=== PATIENT | male | born 1980 | race Two or more races ===

== ENCOUNTER 2021-04-30 08:41 | Emergency (ER) | payer OTHER ==
[~2021-04-30] VITALS: Ht 193 cm; Wt 123.0 kg
[2021-04-30] MEDS ORDERED: ASPIRIN 81MG TABLET PO ONE (09:15)
[2021-04-30] MEDS ORDERED: FUROSEMIDE 40MG/4ML VIAL IV ONE (09:15)
[2021-04-30 09:39] LABS: BASOPHILS % 0.8 % (0.0-2.0); EOSINOPHILS % 0.5 % (0.0-5.0); HEMATOCRIT. 48.8 % (42.0-52.0); HEMOGLOBIN. 15.8 g/dL (14.0-18.0); LYMPHOCYTES % 10.1 % (20.0-50.0); MEAN CORPUSCULAR HEMOGLOBIN 28.5 pg (28.0-32.0); MEAN CORPUSCULAR VOLUME 87.9 fL (80.0-94.0); MEAN PLATELET VOLUME 9.6 fl (7.4-10.4); MONOCYTES % 8.4 % (2.0-8.0); NEUTROPHILS % 80.2 % (40.0-76.0); PLATELET 270 x1000/uL (130-400); RED BLOOD CELL COUNT 5.55 mill/uL (4.7-6.1); RED CELL DISTRIBUTION WIDTH 14.6 % (11.6-14.6)
[2021-04-30 09:44] LABS: CHLORIDE 100 mEq/L (98-107)
[2021-04-30 09:49] LABS: ETHANOL BLOOD < 10 mg/dL
[2021-04-30 10:59] LABS: *BARBITURATES SCREEN URINE NEGATIVE (NEGATIVE); *BENZODIAZEPINES SCREEN URINE NEGATIVE (NEGATIVE)
[2021-04-30 11:00] LABS: *AMPHETAMINES SCREEN URINE NEGATIVE (NEGATIVE); *COCAINE SCREEN URINE NEGATIVE (NEGATIVE); METHADONE URINE SCREEN NEGATIVE (NEGATIVE); OPIATES URINE SCREEN NEGATIVE (NEGATIVE); PHENCYCLIDINE URINE SCREEN NEGATIVE (NEGATIVE)
[2021-04-30 11:01] LABS: CANNABINOID URINE SCREEN NEGATIVE (NEGATIVE)
[2021-04-30 11:30] VITALS: BP 122/84
[2021-05-01] MEDS ORDERED: SPIR25TA6 PO (21:30)
[2021-05-01] MEDS ORDERED: DIVA500T51 PO (21:30)
[2021-05-01] MEDS ORDERED: APIX5TAB PO (21:30)
[2021-05-01] MEDS ORDERED: ARIP10TA56 PO (21:30)
[2021-05-01] MEDS ORDERED: AMI2 PO (21:30)
== END 2021-04-30 11:48 | disposition home or self-care (01) ==
LOC: ER 08:41
DX: I50.9 Heart failure, unspecified (principal); R00.0 Tachycardia, unspecified; R03.0 Elevated blood-pressure reading, without diagnosis of hypertension
CPT/HCPCS: 36415; 71045; 80053; 80305; 80320; 83880; 84484; 85025; 93005; 96374; 99285; J1940; G0480

== ENCOUNTER 2021-05-01 12:10 | Inpatient (IN) | payer MEDICAID, OTHER ==
[~2021-05-01] VITALS: Ht 193 cm; Wt 124.7 kg
[2021-05-01] MEDS ORDERED: IPRATROPIUM BROMIDE (0.02%) 0.5MG/2.5ML NEB HHN STA (12:38)
[2021-05-01] MEDS ORDERED: METHYLPREDNISOLONE SOD SUCC 125 MG/2 ML VIAL IV STA (12:38)
[2021-05-01] MEDS ORDERED: MAGNESIUM 2 G PREMIX 50 ML IV ONE (12:45)
[2021-05-01 13:04] LABS: BASOPHILS % 0.8 % (0.0-2.0); EOSINOPHILS % 0.6 % (0.0-5.0); HEMOGLOBIN. 15.8 g/dL (14.0-18.0); LYMPHOCYTES % 10.8 % (20.0-50.0); MEAN CORPUSCULAR HEMOGLOBIN 29.1 pg (28.0-32.0); MEAN CORPUSCULAR VOLUME 86.5 fL (80.0-94.0); MEAN PLATELET VOLUME 9.4 fl (7.4-10.4); NEUTROPHILS % 75.8 % (40.0-76.0); PLATELET 282 x1000/uL (130-400); RED BLOOD CELL COUNT 5.44 mill/uL (4.7-6.1); RED CELL DISTRIBUTION WIDTH 15.1 % (11.6-14.6)
[2021-05-01] MEDS: ALBUTEROL (0.083%) 2.5MG/3ML NEB HHN SCH ×3 (13:05→13:34)
[2021-05-01 13:10] LABS: CHLORIDE 99 mEq/L (98-107)
[2021-05-01] MEDS ORDERED: SODIUM POLYSTYRENE SULFONATE 15 G/60 ML BOT PO SCH ×2 (14:30→21:45)
[2021-05-01] MEDS ORDERED: INSULIN REGULAR (HUMULIN R) 300UNITS/3ML VIAL IV SCH (14:30)
[2021-05-01] MEDS ORDERED: PIPERACILLIN/TAZ 3.375G PREMIX 50 ML IV SCH (14:30)
[2021-05-01] MEDS ORDERED: DEXTROSE 50% WATER 50ML SYRINGE IV SCH (14:30)
[2021-05-01 16:15] LABS: PROTHROMBIN TIME 10.7 sec (9.6-11.0)
[2021-05-01] MEDS ORDERED: DIVA500T51 PO (21:30)
[2021-05-01] MEDS ORDERED: ARIP10TA56 PO (21:30)
[2021-05-01] MEDS ORDERED: AMI2 PO (21:30)
[2021-05-01] MEDS ORDERED: APIX5TAB PO (21:30)
[2021-05-01] MEDS ORDERED: SPIR25TA6 PO (21:30)
[2021-05-01 21:43] VITALS: BP 126/70
[2021-05-01] MEDS ORDERED: ONDANSETRON HCL 4MG/2ML INJ IV PRN (21:45)
[2021-05-01] MEDS ORDERED: DIPHENHYDRAMINE 50MG/ML VIAL IV PRN (21:45)
[2021-05-01] MEDS ORDERED: ACETAMINOPHEN 325MG TABLET PO PRN ×2 (21:45)
[2021-05-01] MEDS ORDERED: MAGNESIUM/ALUMINUM HYDROXIDE/SIMETHICONE 30ML UDC PO PRN (21:45)
[2021-05-01] MEDS ORDERED: CLONIDINE 0.1MG TABLET PO PRN (21:45)
[2021-05-02] VITALS: BP 130/76
[2021-05-02 04:00] VITALS: BP 142/80
[2021-05-02] MEDS: SODIUM CHLORIDE 0.9% INJ 3ML FLUSH IVF SCH ×4 (06:18→21:24)
[2021-05-02 07:39] LABS: HEMATOCRIT. 48.6 % (42.0-52.0); HEMOGLOBIN. 15.2 g/dL (14.0-18.0); MEAN CORPUSCULAR HEMOGLOBIN 27.9 pg (28.0-32.0); MEAN CORPUSCULAR VOLUME 89.2 fL (80.0-94.0); MEAN PLATELET VOLUME 9.6 fl (7.4-10.4); PLATELET 299 x1000/uL (130-400); RED BLOOD CELL COUNT 5.45 mill/uL (4.7-6.1); RED CELL DISTRIBUTION WIDTH 14.8 % (11.6-14.6)
[2021-05-02 07:42] LABS: CHLORIDE 98 mEq/L (98-107)
[2021-05-02 08:00] VITALS: BP 121/83
[2021-05-02] MEDS: FUROSEMIDE 40MG/4ML VIAL IVP SCH (08:59)
[2021-05-02] MEDS: ARIPIPRAZOLE 5MG TABLET PO SCH (09:00)
[2021-05-02] MEDS: APIXABAN 5 MG TABLET PO SCH ×2 (09:00→18:16)
[2021-05-02] MEDS ORDERED: AMIODARONE HCL 200 MG TABLET PO SCH (09:00)
[2021-05-02 10:08] LABS: BG BASE EXCESS 7.6 mmol/L (-2.0-2.0); BG CARBOXYHEMOGLOBIN 0.6 % (0.5-1.5); BG DEOXYHEMOGLOBIN 4.3 % (0.0-5.0); BG FRACTION INSPIRED OXYGEN 60; BG HCO3 ACT 37.3 mmol/L (22.0-26.0); BG METHEMOGLOBIN 0.3 % (0.0-1.5); BG OXYGEN SATURATION 95.7 % (92.0-98.5); BG OXYHEMOGLOBIN 94.8 % (94.0-97.0); BG PCO2 74.1 mmHg (35.0-45.0); BG SAMPLE SITE ALINE; BG TOTAL HEMOGLOBIN 16.9 g/dL (12.0-18.0); BG VENT MODE MASK - SIMPLE
[2021-05-02 11:46] LABS: PLATELET ESTIMATE NORMAL
[2021-05-02 12:00] VITALS: BP 116/75
[2021-05-02] MEDS: AMLODIPINE 5MG TABLET PO SCH (13:14)
[2021-05-02] MEDS: DILTIAZEM HCL 30MG TABLET PO SCH ×2 (14:00→21:24)
[2021-05-02 15:55] VITALS: BP 107/72
[2021-05-02 20:00] VITALS: BP 125/74
[2021-05-02] MEDS: DIVALPROEX SODIUM 500MG ER TABLET PO SCH (21:24)
[2021-05-03] VITALS: BP 121/78
[2021-05-03] MEDS: IPRATROPIUM/ALBUTEROL 0.5-3(2.5)MG/3ML NEB HHN PRN (00:29)
[2021-05-03 04:00] VITALS: BP 121/68
[2021-05-03] MEDS: DILTIAZEM HCL 30MG TABLET PO SCH ×3 (05:26→21:50)
[2021-05-03] MEDS: SODIUM CHLORIDE 0.9% INJ 3ML FLUSH IVF SCH ×3 (05:26→21:49)
[2021-05-03 08:00] VITALS: BP 124/76
[2021-05-03 08:49] LABS: BG BASE EXCESS 11.7 mmol/L (-2.0-2.0); BG CARBOXYHEMOGLOBIN 0.8 % (0.5-1.5); BG DEOXYHEMOGLOBIN 8.4 % (0.0-5.0); BG FRACTION INSPIRED OXYGEN 36; BG HCO3 ACT 41.7 mmol/L (22.0-26.0); BG METHEMOGLOBIN 0.3 % (0.0-1.5); BG OXYGEN SATURATION 91.5 % (92.0-98.5); BG OXYHEMOGLOBIN 90.5 % (94.0-97.0); BG PO2 61.7 mmHg (75.0-100.0); BG SAMPLE SITE RIGHT RADIAL; BG TOTAL HEMOGLOBIN 15.7 g/dL (12.0-18.0); BG VENT MODE NASAL CANNULA
[2021-05-03] MEDS: APIXABAN 5 MG TABLET PO SCH ×2 (09:41→17:06)
[2021-05-03] MEDS: FUROSEMIDE 40MG/4ML VIAL IVP SCH (09:41)
[2021-05-03] MEDS: ARIPIPRAZOLE 5MG TABLET PO SCH (09:41)
[2021-05-03] MEDS: AMLODIPINE 5MG TABLET PO SCH (09:41)
[2021-05-03 12:00] VITALS: BP 115/77
[2021-05-03] MEDS: SILDENAFIL CITRATE 20MG TABLET PO SCH ×2 (14:18→21:50)
[2021-05-03 16:00] VITALS: BP 108/77
[2021-05-03] MEDS ORDERED: ALBU6.7H15 INH (19:07)
[2021-05-03 20:00] VITALS: BP 114/72
[2021-05-03] MEDS: DIVALPROEX SODIUM 500MG ER TABLET PO SCH (21:49)
[2021-05-04] VITALS: BP 102/58
[2021-05-04] MEDS: IPRATROPIUM/ALBUTEROL 0.5-3(2.5)MG/3ML NEB HHN PRN (02:14)
[2021-05-04 04:00] VITALS: BP 101/66
[2021-05-04] MEDS: SODIUM CHLORIDE 0.9% INJ 3ML FLUSH IVF SCH ×2 (06:48→14:00)
[2021-05-04] MEDS: DILTIAZEM HCL 30MG TABLET PO SCH ×2 (06:49→15:31)
[2021-05-04] MEDS: SILDENAFIL CITRATE 20MG TABLET PO SCH ×2 (06:49→15:31)
[2021-05-04 08:00] VITALS: BP 118/78
[2021-05-04] MEDS: AMLODIPINE 5MG TABLET PO SCH (09:29)
[2021-05-04] MEDS: APIXABAN 5 MG TABLET PO SCH (09:29)
[2021-05-04] MEDS: FUROSEMIDE 40MG/4ML VIAL IVP SCH (09:29)
[2021-05-04] MEDS: ARIPIPRAZOLE 5MG TABLET PO SCH (09:30)
[2021-05-04 12:00] VITALS: BP 128/69
[2021-05-04 16:00] VITALS: BP 133/82
[2021-05-04 16:29] VITALS: BP 133/82
== END 2021-05-04 18:00 | disposition home or self-care (01) | DRG 193 ==
LOC: ER 12:10 → 5WST 17:43 → EDBEDREQ 17:45 → EDBEDREQTM 17:45 → ENRESERV 19:56
PROVIDERS: ADMIT Internal Medicine; ATTEND Internal Medicine
PROC: 5A09357 Assistance with Respiratory Ventilation, Less than 24 Consecutive Hours, Continuous Positive Airway Pressure (ICD-10-PCS; principal; 2021-05-03)
DX: J18.9 Pneumonia, unspecified organism (principal); J96.01 Acute respiratory failure with hypoxia; J96.02 Acute respiratory failure with hypercapnia; R65.11 Systemic inflammatory response syndrome (SIRS) of non-infectious origin with acute organ dysfunction; E44.1 Mild protein-calorie malnutrition; I48.20 Chronic atrial fibrillation, unspecified; I50.32 Chronic diastolic (congestive) heart failure; J44.0 Chronic obstructive pulmonary disease with (acute) lower respiratory infection; I48.92 Unspecified atrial flutter; E11.9 Type 2 diabetes mellitus without complications; F17.210 Nicotine dependence, cigarettes, uncomplicated; F31.9 Bipolar disorder, unspecified; E66.01 Morbid (severe) obesity due to excess calories; Z20.822 Contact with and (suspected) exposure to COVID-19; I11.0 Hypertensive heart disease with heart failure; I27.20 Pulmonary hypertension, unspecified; I48.0 Paroxysmal atrial fibrillation; Z79.01 Long term (current) use of anticoagulants; Z71.6 Tobacco abuse counseling; Z68.33 Body mass index [BMI] 33.0-33.9, adult
CPT/HCPCS: 36415; 36600; 71045; 80048; 80053; 82375; 82805; 82962; 83880; 84484; 85025; 87070; 87426; 93005; 94640; 94660; 99291; J1815; J1940; J2543; J2930; J3475